=== PATIENT | male | born 1985 | race American Indian/Alaskan Native ===

== ENCOUNTER 2018-08-26 22:07 | Emergency (ER) | payer OTHER ==
--- NOTE | 2018-08-27 03:06 | Emergency Department Report ---
ED Rash HPI - HPI Chief Complaint: Skin Rash Stated Complaint: BUG BITE Time Seen by Provider: 08/27/18 02:52 Duration: 2 Days Location: Other (generalized) Suspected Cause: Insect Rash Symptoms: Yes Itching (all over), No Facial Swelling, No Tongue/Oral Swelling, No Breathing Difficulties, No Choking Sensation, No Wheezing/Dyspnea, No Peeling, No Blistering, No Fever, No Lightheaded, No Malaise, No Myalgias Severity: Unable to Determine Other History: This is a 33-year-old male here report that he thinks that this he has bugs crawling all over him. He said he is itchy all over and her headache had. Denies any pain. This started 2 days ago. Patient has a history of bipolar and schizophrenia but denies any suicidal ideation or homicide ideation. Denies any visual or auditory hallucination. He reports that he think that he has been bitten by a bug ED Review of Systems ROS: Stated complaint: BUG BITE Other details as noted in HPI Constitutional: denies: chills, fever Respiratory: denies: cough, shortness of breath, wheezing Cardiovascular: denies: chest pain, palpitations, dyspnea on exertion, edema, syncope Gastrointestinal: denies: abdominal pain, nausea, vomiting Musculoskeletal: denies: back pain, joint swelling, arthralgia, myalgia Skin: rash, pruritus Neurological: denies: headache, weakness, numbness, paresthesias ED Past Medical Hx - Past Medical History Previous Medical History?: Yes Hx Psychiatric Treatment: Yes (Bipolar, schizophrenia) - Surgical History Past Surgical History?: No - Family History Family history: no significant - Social History Smoking Status: Current Every Day Smoker Substance Use Type: None Rash Exam - Exam General: Vital signs noted. No distress. Alert and acting appropriately. This is a 33-year-old patient here in no acute distress. HEENT: No Periorbital Edema, No Conjuctival Injection, No Chemosis, No Perioral Edema, No Tongue Edema, No Uvular Edema, No Compromised Airway, No Drooling Lungs: Yes Good Air Exchange, No Wheezes, No Ronchi, No Stridor, No Cough, No Labored Respirations, No Retractions, No Use of Accessory Muscles, No Other Abnormal Lung Sounds Heart: Yes Regular, No Murmur Skin: Yes Other (no rashes or bugs noted to his skin), No Urticarial Rash, No Maculopapular Rash, No Morbilliform rash, No Bulla(e), No Excoriations, No Weeping, No Tenderness, No Erythema, No Edema, No Encrustations Other: Positive: Abdomen Normal, Neurologic Normal, Musculoskeletal Normal ED Course Vital Signs 08/26/18 22:40 Temperature 98 F Pulse Rate 86 Respiratory 18 Rate Blood Pressure 122/76 O2 Sat by Pulse 100 Oximetry - Reevaluation(s) Reevaluation #1: 08/27/18 04:11 ED Medical Decision Making - Medical Decision Making 33-year-old male patient here report that he has rash and itchy skin and upon examination, I did not find any skin abnormality. I discussed the patient that I do not see any rash on his body. I am not sure what medication patient is taken at this time he has a history of bipolar and schizophrenia and I do not want to give him any medication that will interact with any medication today he could be taken. Patient is stable and in no acute distress. 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 Critical care attestation.: If time is entered above; I have spent that time in minutes in the direct care of this critically ill patient, excluding procedure time. ED Disposition Clinical Impression: Itchy skin Disposition: [id number] TO HOME OR SELFCARE Is pt being admited?: No Does the pt Need Aspirin: No Condition: Stable Instructions: Itchy Skin (ED) Additional Instructions: Patient is stable and in no acute distress. He is here complaining of itchy skin and rash and physical findings for no rash. Patient to follow up with [employer] plant supervisor and primary care physician regarding and pruritus without any overt rash. Discharge home in stable condition. I am unable to prescribe any medication for patient at this time as he has diagnosis for bipolar and schizophrenia and I am not sure what medication he is on an not comfortable given the medication that could possibly interact with any mental health meds that he may be on. Referrals: PRIMARY CARE, [Primary Care Provider] - 08/29/18 WILLY BA MD [Staff Physician] - 2-3 Days [facility] [Outside] - 2-3 Days Forms: Work/School Release Form(ED)
[2018-08-27 04:47] VITALS: BP 121/82
== END 2018-08-27 04:46 | disposition home or self-care (01) ==
LOC: ED 22:07
DX: L98.9 Disorder of the skin and subcutaneous tissue, unspecified (principal); R51 Headache
CPT/HCPCS: 99282